=== PATIENT | female | born 1980 | race Two or more races ===

== ENCOUNTER 2025-01-01 20:10 | Inpatient (IN) | payer BC ==
[~2025-01-01] VITALS: Ht 152.4 cm; Wt 105.7 kg
[2025-01-01] MEDS ORDERED: METOCLOPRAMIDE HCL 10 MG/2 ML VIAL ONE (21:02)
[2025-01-01] MEDS ORDERED: ACETAMINOPHEN ES 500 MG TABLET ONE (21:03)
[2025-01-01 21:07] LABS: PLATELET COUNT (AUTO) 251 K/uL (150-450); RED BLOOD CELL COUNT(AUTO) 5.02 MIL/uL (4.0-5.2); RED CELL DISTRIBUTION WIDTH 14.4 % (11.5-15.0); WHITE BLOOD COUNT (AUTO) 17.6 K/uL (4.3-11.0)
[2025-01-01] MEDS: IV NS 0.9% 1,000 ML BAG IV ONE ×3 (21:13→22:03)
[2025-01-01] MEDS: METOCLOPRAMIDE HCL 10 MG/2 ML VIAL IV ONE (21:14)
[2025-01-01] MEDS: ACETAMINOPHEN ES 500 MG TABLET PO ONE (21:14)
[2025-01-01 21:16] LABS: CALCIUM, SERUM 8.5 mg/dL (8.5-10.1); CREATININE 1.0 mg/dL (0.6-1.3); SODIUM SERUM 140.0 mmol/L (136-145); UREA NITROGEN, BLOOD 14.0 mg/dL (7-18)
[2025-01-01 21:21] LABS: ASPARTATE AMINOTRANSFERASE 111.0 U/L (15-37); TOTAL PROTEIN, SERUM 7.6 g/dL (6.4-8.2)
[2025-01-01 21:23] LABS: PREGNANCY TEST URINE QUAL NEGATIVE (NEGATIVE)
[2025-01-01] MEDS: KETOROLAC TROMETHAMINE INJ 30 MG/ML VIAL IV ONE (21:32)
[2025-01-01 21:45] LABS: LACTIC ACID 3.1 mmol/L (0.4-2.0)
[2025-01-01 21:47] LABS: INR 1.03 (0.91-1.10)
[2025-01-01] MEDS ORDERED: CEFTRIAXONE 1GM BAG (ER ONLY) 50 ML IV ONE (21:49)
[2025-01-01] MEDS: CEFTRIAXONE 1GM BAG (ER ONLY) 50 ML IV ONE (22:00)
[2025-01-01] MEDS ORDERED: ONDANSETRON HCL/PF 4 MG/2 ML VIAL IVP PRN (23:00)
[2025-01-01] MEDS ORDERED: MORPHINE SULFATE INJ 2 MG/ML DISP.SYRIN IV PRN (23:00)
[2025-01-01] MEDS: NICOTINE PATCH (21MG) 21 MG PATCH.TD24 TD SCH (23:00)
[2025-01-01] MEDS ORDERED: Z GUARD REMEDY 4 OZ OINT TP PRN (23:00)
[2025-01-01] MEDS ORDERED: MAGNESIUM HYDROXIDE 30 ML UDC PO PRN (23:00)
[2025-01-01] MEDS ORDERED: MAG HYDROX/AL HYDROX/SIMETH 30 ML UDC PO PRN (23:00)
[2025-01-01] MEDS ORDERED: TEMAZEPAM 7.5 MG CAPSULE PO PRN (23:45)
[2025-01-02] VITALS (7 sets, daily range): BP systolic 94–108; BP diastolic 52–63; TEMP 98.4–100.6; O2SAT 95–99
[2025-01-02] MEDS: POTASSIUM CHLORIDE 20 MEQ TAB.PRT.SR PO ONE (00:14)
[2025-01-02] MEDS: ENOXAPARIN SODIUM 40 MG/0.4 ML DISP.SYRIN SQ SCH (00:16)
[2025-01-02] MEDS: IV NS 0.9% 1,000 ML IV SCH (00:18)
[2025-01-02] MEDS: ACETAMINOPHEN 325 MG TABLET PO PRN (00:35)
[2025-01-02] MEDS ORDERED: POTASSIUM CHLORIDE 20 MEQ TAB.PRT.SR PO ONE (00:45)
[2025-01-02 01:04] LABS: APPEARANCE,URINE CLEAR (CLEAR); BLOOD, URINE NEGATIVE Ery/uL (NEGATIVE); LEUKOCYTE ESTERASE ,URINE 2+ (NEGATIVE); NITRITE, URINE NEGATIVE (NEGATIVE); UGLUCOSE NEGATIVE (NEGATIVE)
[2025-01-02 01:16] LABS: ADD URINE CULTURE YES; SQUAMOUS EPITHELIAL CELL,UR Moderate /HPF (None Seen)
[2025-01-02] MEDS: HYDROXYCHLOROQUINE 200 MG TABLET PO SCH (03:18)
[2025-01-02] MEDS: CARBAMAZEPINE 200 MG TABLET PO SCH (03:19)
[2025-01-02] MEDS: PANTOPRAZOLE 40 MG TABLET.DR PO SCH (06:33)
[2025-01-02 08:05] LABS: PLATELET COUNT (AUTO) 236 K/uL (150-450); RED BLOOD CELL COUNT(AUTO) 4.75 MIL/uL (4.0-5.2); RED CELL DISTRIBUTION WIDTH 14.5 % (11.5-15.0); WHITE BLOOD COUNT (AUTO) 21.9 K/uL (4.3-11.0)
[2025-01-02 08:33] LABS: CALCIUM, SERUM 7.6 mg/dL (8.5-10.1); CREATININE 0.8 mg/dL (0.6-1.3); SODIUM SERUM 140.0 mmol/L (136-145); UREA NITROGEN, BLOOD 14.0 mg/dL (7-18)
[2025-01-02] MEDS: CEFEPIME 2 GM in IV D5W 100 ML IV SCH (08:56)
[2025-01-02] MEDS ORDERED: CARB200T8 PO (09:35)
[2025-01-02] MEDS ORDERED: MOUNJARO SQ (09:35)
[2025-01-02] MEDS ORDERED: HYDR200T4 PO (09:35)
[2025-01-03 06:55] LABS: CALCIUM, SERUM 7.9 mg/dL (8.5-10.1); CREATININE 0.7 mg/dL (0.6-1.3); SODIUM SERUM 140.0 mmol/L (136-145); UREA NITROGEN, BLOOD 10.0 mg/dL (7-18)
[2025-01-03 06:58] LABS: PLATELET COUNT (AUTO) 192 K/uL (150-450); RED BLOOD CELL COUNT(AUTO) 4.12 MIL/uL (4.0-5.2); RED CELL DISTRIBUTION WIDTH 14.9 % (11.5-15.0); WHITE BLOOD COUNT (AUTO) 9.6 K/uL (4.3-11.0)
[2025-01-03 08:00] VITALS: BP 119/80; TEMP 98.2; O2SAT 97
[2025-01-03 16:00] VITALS: BP 139/71; TEMP 99.3; O2SAT 97
[2025-01-03 20:24] VITALS: BP 120/64; TEMP 98.1; O2SAT 96
[2025-01-03 20:56] VITALS: BP 120/64; TEMP 98.1; O2SAT 96
[2025-01-03] MEDS: CIPROFLOXACIN HCL 500 MG TABLET PO SCH (21:24)
[2025-01-04 07:10] LABS: PLATELET COUNT (AUTO) 200 K/uL (150-450); RED BLOOD CELL COUNT(AUTO) 4.06 MIL/uL (4.0-5.2); RED CELL DISTRIBUTION WIDTH 15.0 % (11.5-15.0); WHITE BLOOD COUNT (AUTO) 4.3 K/uL (4.3-11.0)
[2025-01-04 07:23] LABS: CALCIUM, SERUM 8.6 mg/dL (8.5-10.1); CREATININE 0.6 mg/dL (0.6-1.3); SODIUM SERUM 142.0 mmol/L (136-145); UREA NITROGEN, BLOOD 8.0 mg/dL (7-18)
[2025-01-04 07:30] VITALS: BP 125/76; TEMP 98.1; O2SAT 97
[2025-01-04] MEDS ORDERED: IV NS 0.9% 1,000 ML IV PRN (07:50)
[2025-01-04] MEDS ORDERED: CIPR500T5 PO (07:58)
[2025-01-04] MEDS: LORATADINE 10 MG TABLET PO SCH (08:11)
== END 2025-01-04 11:50 | disposition home or self-care (01) | DRG 872 ==
LOC: ER 20:25 → TELE 23:24 → MED 01-02 21:43
PROVIDERS: ADMIT Registered Nurse Psychiatric/Mental Health
DX: A41.9 Sepsis, unspecified organism (principal); E87.20 Acidosis, unspecified; N39.0 Urinary tract infection, site not specified; Z68.42 Body mass index [BMI] 45.0-49.9, adult; E66.9 Obesity, unspecified; B34.9 Viral infection, unspecified; E87.6 Hypokalemia; Z71.6 Tobacco abuse counseling; Z87.440 Personal history of urinary (tract) infections; G40.909 Epilepsy, unspecified, not intractable, without status epilepticus; K76.0 Fatty (change of) liver, not elsewhere classified; Z20.822 Contact with and (suspected) exposure to COVID-19; R65.20 Severe sepsis without septic shock; R74.01 Elevation of levels of liver transaminase levels; R73.9 Hyperglycemia, unspecified; M32.9 Systemic lupus erythematosus, unspecified; D73.89 Other diseases of spleen; D75.89 Other specified diseases of blood and blood-forming organs; R73.03 Prediabetes; F17.210 Nicotine dependence, cigarettes, uncomplicated; E66.01 Morbid (severe) obesity due to excess calories; T38.3X5A Adverse effect of insulin and oral hypoglycemic [antidiabetic] drugs, initial encounter; Y92.009 Unspecified place in unspecified non-institutional (private) residence as the place of occurrence of the external cause; B96.89 Other specified bacterial agents as the cause of diseases classified elsewhere
CPT/HCPCS: 36415; 71045-TC; 76705-TC; 80048-TC; 80076-TC; 81001; 83605-TC; 83690-TC; 84703-TC; 85025-TC; 85730-TC; 87040-TC; 87086-TC; A4223; G0378; J0692; J0696; J1650; J1885; J2765; J7030; J7060; Q0163